=== PATIENT | male | born 1935 | race Hispanic/Latino ===

== ENCOUNTER 2020-09-30 11:13 | Outpatient (CLI) | payer MEDICARE ==
[~2020-09-30 11:13] MED LIST: Iopamidol 370 76% 100 ML VIAL ONE
--- NOTE | 2020-09-30 14:16 | CT ---
CTA ABDOMEN AND PELVIS AND LOWER EXTREMITIES WITH CTA RUNOFF: 09/30/20 TECHNIQUE: Axial tomograms obtained through with multiplanar reconstructions and 3D postprocessing following ang io protocol. INDICATIONS: Peripheral vascular disease. Outside ultrasound revealed blockage in right lower extremity. FINDINGS: Abdominal aorta shows atherosclerotic calcification. No aneurysm. No dissection. No significant stenosis at the origin of the celiac artery or superior mesenteric artery. Calcified p laque at the origin of both of these vessels. There is calcified plaque at the origin of both renal arteries. There is evidence of probable hemodyn amically significant stenosis at the origin of the left renal artery of greater than 50% diameter. The aortic bifurcation is patent. Atherosclerotic calcification in both common iliacs. RIGHT LOWER EXTREMITY: The right internal and external iliacs are patent. Right common femoral shows atherosclerotic calcifi cation but is patent without stenosis. Profunda is patent. The right superficial femoral artery shows moderate atherosclerotic changes in the mid and distal thi gh without evidence of significant stenosis. The popliteal artery shows atherosclerotic calcification without evidence of significant stenosis. The popliteal trifurcates below the joint space. Atherosclerotic changes are seen from the vessels be low the knee most pronounced in the posterior tibial artery with evidence of occlusion in the mid kristina f of the posterior tibial artery. The anterior tibial artery and peroneal artery are patent to the an kle. LEFT LOWER EXTREMITY: Left internal and external iliacs are patent. Left common femoral shows atherosclerotic calcification without significant stenosis. Profunda is patent. The left superficial femoral artery shows moderate disease at Cristi's canal with evidence of moderat e stenosis at Cristi's canal approaching 50% diameter. Atherosclerotic calcification in the popliteal with moderate stenosis at the joint space. Popliteal trifurcates below the knee. Diffuse disease seen throughout the anterior tibial artery and posterior tibial artery although both of these arteries do appear to be patent through the ankle. Per handy artery is also patent with diffuse disease. SOFT TISSUES: Lung bases show chronic parenchymal change with interstitial and fibrotic changes. The liver, spleen, and pancreas are unremarkable. There is pneumobilia seen in the proximal intrahepa tic biliary ducts. Post cholecystectomy change. Adrenal glands and kidneys unremarkable. There are bilateral renal cystic lesions. Bowel loops unremarkable. Images through the pelvis show prostatic hypertrophy which impinges on the floor of the bladder. Mild urinary bladder wall thickening. Osseous structures show prominent degenerative changes in the spine with multilevel degenerative disc changes. Anterolisthesis and posterior spondylolysis at L5-S1. Bilateral foraminal stenosis at L4-5 and L5-S1. IMPRESSION: 1. Peripheral vascular disease as detailed above. Probable hemodynamically significant stenosis at the origin of the left renal artery. 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 Probable significant stenosis in the distal left superficial femoral artery and moderate stenosi s in the left popliteal. See description above. 2. Prostatic hypertrophy impinging on the floor of the bladder. Other soft tissue findings as no thelma above. POS: DONALDW
== END 2020-09-30 11:14 | disposition home or self-care (01) ==
LOC: CT 11:13
PROVIDERS: ATTEND Family Medicine
DX: I73.9 Peripheral vascular disease, unspecified (principal); N40.0 Benign prostatic hyperplasia without lower urinary tract symptoms; I77.1 Stricture of artery
CPT/HCPCS: 75635; Q9967

== ENCOUNTER 2021-07-06 14:44 | Emergency (ER) | payer MEDICARE ==
[2021-07-06 17:00] LABS: #Eosinphils 0.1 thou/uL (0.0-0.7); #Lymphocytes 1.7 thou/uL (1.20-3.40); #Monocytes 0.6 thou/uL (0.11-0.59); #Neutrophils 3.8 thou/uL (1.40-6.50); %Basophils 0.6 % (0.0-1.0); %Eosinophils 2.3 % (0.0-10.0); %Lymphocytes 27.9 % (21.0-51.0); %Monocytes 9.2 % (0.0-10.0); Mean Corpuscular Hemoglobin 30.4 pg (27.0-31.0); Mean Platelet Volume 7.3 fL (7.4-10.4); Platelet Count 266 thou/uL (130-400); RBC Distribution Width 12.8 % (11.5-14.5); Red Blood Cell (RBC) Count 4.27 mill/uL (4.70-6.10); White Blood Cell (WBC) Count 6.2 thou/uL (4.8-10.8)
[2021-07-06 17:17] LABS: Prothrombin Time 13.3 sec (12.0-14.7)
[2021-07-06 17:18] LABS: PTT 30.7 sec (22.9-36.1)
[2021-07-06 17:33] LABS: ALT (SGPT) 18 U/L (8-55); AST (SGOT) 19 U/L (5-34); Alkaline Phosphatase 95 U/L (40-110); Anion Gap 11 mmol/L (10-20); BUN (Urea Nitrogen) 14 mg/dL (8.4-25.7); Bilirubin, Total 0.7 mg/dL (0.2-1.2); Calc. Creatinine Clearance 0 mL/min (70-130); Calcium 9.5 mg/dL (7.8-10.44); Carbon Dioxide 26 mmol/L (23-31); Chloride 103 mmol/L (98-107); Globulin 3.5 g/dL (2.4-3.5); Glucose 140 mg/dL (83-110); Potassium 4.3 mmol/L (3.5-5.1); Protein, Total 7.5 g/dL (5.8-8.1); Sodium 136 mmol/L (136-145)
== END 2021-07-06 19:16 | disposition home or self-care (01) ==
LOC: ERS 14:44
DX: I10 Essential (primary) hypertension (principal); E11.9 Type 2 diabetes mellitus without complications; E78.5 Hyperlipidemia, unspecified; E78.00 Pure hypercholesterolemia, unspecified
CPT/HCPCS: 36415; 70450; 71045; 80053; 84484; 85025; 85610; 85730; 93005

== ENCOUNTER 2021-10-14 15:38 | Outpatient (CLI) | payer MEDICARE ==
[2021-10-15 11:59] LABS: SARS-CoV-2 PCR by NAA Not Detected (NotDetected)
== END 2021-10-14 15:39 | disposition home or self-care (01) ==
LOC: LABBT 15:38
PROVIDERS: ATTEND Orthopaedic Surgery
DX: Z01.812 Encounter for preprocedural laboratory examination (principal); S42.492A Other displaced fracture of lower end of left humerus, initial encounter for closed fracture; Z20.822 Contact with and (suspected) exposure to COVID-19; E11.65 Type 2 diabetes mellitus with hyperglycemia; N40.1 Benign prostatic hyperplasia with lower urinary tract symptoms; S42.412A Displaced simple supracondylar fracture without intercondylar fracture of left humerus, initial encounter for closed fracture
CPT/HCPCS: 80053; 83036; 85025; U0003; U0005; 36415

== ENCOUNTER 2021-10-16 11:13 | Inpatient (IN) | payer MEDICARE ==
[2021-10-14 11:14] VITALS: BMI 32.1
[2021-10-16] MEDS ORDERED: Fentanyl 250 MCG/5 ML VIAL ONE (12:21)
[2021-10-16] MEDS ORDERED: Tranexamic Acid 1,000 MG/10 ML VIAL ONE (12:28)
[2021-10-16] MEDS ORDERED: Sodium Chloride 0.9% 100 ML ONE (12:29)
[2021-10-16] MEDS ORDERED: ceFAZolin (BATCH) 2 GM/100 ML BAG ONE (12:29)
[2021-10-16] MEDS ORDERED: Bupivacaine PF 0.5% 30 ML VIAL ONE ×2 (12:41→12:54)
[2021-10-16] MEDS ORDERED: Vancomycin HCl 500 MG VIAL ONE (12:42)
[2021-10-16] MEDS ORDERED: Vancomycin 1 GM/200 ML BAG ONE (12:42)
[2021-10-16] MEDS ORDERED: Vancomycin 1.5 GRAM/300 ML BAG 1.5 GM in Premix Bag 1 BAG IVPB SCH (12:45)
[2021-10-16] MEDS ORDERED: PHENYLEPHRINE-NS 100 MCG/ML 10 ML SYRINGE ONE (12:54)
[2021-10-16] MEDS ORDERED: GLYCOPYRROLATE/PF 0.2 MG/ML VIAL ONE (12:54)
[2021-10-16] MEDS ORDERED: Lidocaine 1% PF 5 ML VIAL ONE (12:54)
[2021-10-16] MEDS ORDERED: Ondansetron PF 4 MG/2 ML Vial ONE (12:54)
[2021-10-16] MEDS ORDERED: Rocuronium Bromide 10 MG/ML (10ML VIAL) ONE (12:54)
[2021-10-16] MEDS ORDERED: PROPOFOL 200 MG/20 ML VIAL ONE (12:54)
[2021-10-16] MEDS ORDERED: Phenylephrine 10 MG/ML VIAL ONE (14:30)
[2021-10-16] MEDS ORDERED: Promethazine HCl 25 MG/ML VIAL IVPB PRN (14:57)
[2021-10-16] MEDS ORDERED: Meperidine HCl/PF 25 MG/ML VIAL SLOW IVP PRN (14:57)
[2021-10-16] MEDS ORDERED: PACU-Morphine 4MG/ML VIAL SLOW IVP PRN (14:57)
[2021-10-16] MEDS ORDERED: Calcium Carbonate 500 MG ChewTAB PO PRN (16:03)
[2021-10-16] MEDS ORDERED: Ondansetron ODT 4 MG TAB PO PRN (16:03)
[2021-10-16] MEDS ORDERED: HYDROcodone/Acetaminophen 7.5/325 mg Tablet PO PRN (16:03)
[2021-10-16] MEDS ORDERED: CEFAZOLIN 2 GM, Admixture Fee 1 EACH in Sodium Chloride 0.9% 100 ML IVPB SCH (16:45)
[2021-10-16] MEDS ORDERED: Pioglitazone HCl 15 MG TAB PO SCH ×2 (17:00)
[2021-10-16] MEDS ORDERED: metFORMIN 850 MG TAB PO SCH ×3 (17:00→20:45)
[2021-10-16] MEDS: Sodium Chloride 0.9% 1,000 ML IV SCH (17:55)
[2021-10-16] MEDS: Morphine 4 MG/ML VIAL SLOW IVP PRN (19:24)
[2021-10-16] MEDS: HYDROcodone/Acetaminophen 7.5/325 mg Tablet PO PRN (19:27)
[2021-10-16] MEDS: Lisinopril 20 MG TAB PO SCH (19:45)
[2021-10-16] MEDS: Simvastatin 10 MG TAB PO SCH (19:45)
[2021-10-16] MEDS ORDERED: Dextrose 5% in Water 1,000 ML IV PRN (20:30)
[2021-10-16] MEDS ORDERED: Tamsulosin HCl 0.4 MG CAP PO SCH (20:30)
[2021-10-16] MEDS ORDERED: Dextrose 50% Abboject 50 ML SYRINGE SLOW IVP PRN (20:30)
[2021-10-16] MEDS: CEFAZOLIN 2 GM, Admixture Fee 1 EACH in Sodium Chloride 0.9% 100 ML IVPB SCH (20:52)
[2021-10-16] MEDS: Lantus 1000 UNITS/10 ML VIAL SC SCH (20:52)
[2021-10-16] MEDS ORDERED: Vancomycin 1 GM in Premix Bag 1 BAG IVPB SCH (23:59)
[2021-10-17] MEDS: Morphine 4 MG/ML VIAL SLOW IVP PRN ×2 (00:01→05:01)
[2021-10-17] MEDS: HYDROcodone/Acetaminophen 7.5/325 mg Tablet PO PRN ×2 (00:02→04:53)
[2021-10-17] MEDS: CEFAZOLIN 2 GM, Admixture Fee 1 EACH in Sodium Chloride 0.9% 100 ML IVPB SCH (04:51)
[2021-10-17] MEDS: Sodium Chloride 0.9% 1,000 ML IV SCH ×2 (05:29→20:30)
[2021-10-17 05:55] LABS: #Lymphocytes 1.2 thou/uL (1.20-3.40); #Neutrophils 11.7 thou/uL (1.40-6.50); %Lymphocytes 8.8 % (21.0-51.0); %Monocytes 7.3 % (0.0-10.0); %Neutrophils 83.9 % (42.0-75.0); Hemoglobin 11.9 g/dL (14.0-18.0); Mean Corpuscular HGB CONC 33.5 g/dL (32.0-36.0); Mean Corpuscular Hemoglobin 30.7 pg (27.0-31.0); Mean Corpuscular Volume 91.5 fL (78.0-98.0); Mean Platelet Volume 7.3 fL (7.4-10.4); Platelet Count 282 thou/uL (130-400); RBC Distribution Width 12.9 % (11.5-14.5); Red Blood Cell (RBC) Count 3.86 mill/uL (4.70-6.10)
[2021-10-17] MEDS ORDERED: traMADol HCl 50 MG TAB PO PRN (06:10)
[2021-10-17] MEDS ORDERED: Ketorolac Tromethamine 30 MG/ML VIAL IVP SCH (06:15)
[2021-10-17] MEDS ORDERED: Cyclobenzaprine 10 MG TAB PO PRN (07:44)
[2021-10-17] MEDS ORDERED: metFORMIN 500 MG TAB PO SCH (08:00)
[2021-10-17 08:01] LABS: #Lymphocytes 0.9 thou/uL (1.20-3.40); #Monocytes 1.1 thou/uL (0.11-0.59); #Neutrophils 11.6 thou/uL (1.40-6.50); %Basophils 0.1 % (0.0-1.0); %Eosinophils 0.1 % (0.0-10.0); %Lymphocytes 6.5 % (21.0-51.0); %Monocytes 8.2 % (0.0-10.0); Hemoglobin 11.2 g/dL (14.0-18.0); Mean Corpuscular HGB CONC 32.9 g/dL (32.0-36.0); Mean Corpuscular Hemoglobin 30.7 pg (27.0-31.0); Mean Corpuscular Volume 93.3 fL (78.0-98.0); Platelet Count 260 thou/uL (130-400); Red Blood Cell (RBC) Count 3.65 mill/uL (4.70-6.10); White Blood Cell (WBC) Count 13.6 thou/uL (4.8-10.8)
[2021-10-17 08:17] LABS: Anion Gap 11 mmol/L (10-20); BUN (Urea Nitrogen) 16 mg/dL (8.4-25.7); Calc. Creatinine Clearance 65 mL/min (70-130); Calcium 7.9 mg/dL (7.8-10.44); Carbon Dioxide 19 mmol/L (23-31); Chloride 107 mmol/L (98-107); Glucose 133 mg/dL (83-110); Potassium 4.3 mmol/L (3.5-5.1); Sodium 133 mmol/L (136-145)
[2021-10-17] MEDS: Pioglitazone HCl 15 MG TAB PO SCH (09:04)
[2021-10-17] MEDS: Gabapentin 300 MG CAP PO SCH ×2 (09:05→20:18)
[2021-10-17] MEDS: Aspirin 325 MG TAB PO SCH (09:10)
[2021-10-17] MEDS ORDERED: Morphine 4 MG/ML VIAL SLOW IVP PRN (10:24)
[2021-10-17] MEDS: Ondansetron PF 4 MG/2 ML Vial IVP PRN ×2 (11:33→16:50)
[2021-10-17] MEDS: Morphine 4 MG/ML VIAL SLOW IVP SCH ×6 (12:18→23:01)
[2021-10-17] MEDS ORDERED: metFORMIN XR 500 MG TAB PO SCH (17:00)
[2021-10-17] MEDS: Lisinopril 20 MG TAB PO SCH (20:18)
[2021-10-17] MEDS: Simvastatin 10 MG TAB PO SCH (20:18)
[2021-10-17] MEDS: Lantus 1000 UNITS/10 ML VIAL SC SCH (20:18)
[2021-10-18] MEDS: Morphine 4 MG/ML VIAL SLOW IVP SCH ×8 (00:47→15:19)
[2021-10-18] MEDS: Acetaminophen 325 MG TAB PO PRN ×3 (05:39→14:19)
[2021-10-18] MEDS: Sodium Chloride 0.9% 1,000 ML IV SCH (08:40)
[2021-10-18] MEDS: Pioglitazone HCl 15 MG TAB PO SCH (08:48)
[2021-10-18] MEDS: Aspirin 325 MG TAB PO SCH (08:48)
[2021-10-18] MEDS: Gabapentin 300 MG CAP PO SCH (08:48)
[2021-10-18 11:22] VITALS: BP 111/62; TEMP 98.5
[2021-10-19] MEDS ORDERED: FLU VACC QS2021-22(65YR UP)/PF 240 MCG/0.7 ML SYRINGE IM ONE (09:00)
== END 2021-10-18 15:00 | disposition home or self-care (01) | DRG 483 ==
LOC: SDC 11:13 → SURG A 17:04 → OBSVTOIN 10-18 12:42
PROVIDERS: ADMIT Orthopaedic Surgery; ATTEND Orthopaedic Surgery
PROC: 0RRM0JZ Replacement of Left Elbow Joint with Synthetic Substitute, Open Approach (ICD-10-PCS; principal; 2021-10-16)
PROC: 01Q40ZZ Repair Ulnar Nerve, Open Approach (ICD-10-PCS; 2021-10-16)
DX: S42.472A Displaced transcondylar fracture of left humerus, initial encounter for closed fracture (principal); N13.8 Other obstructive and reflux uropathy; Z20.822 Contact with and (suspected) exposure to COVID-19; E11.9 Type 2 diabetes mellitus without complications; E78.5 Hyperlipidemia, unspecified; I10 Essential (primary) hypertension; N40.1 Benign prostatic hyperplasia with lower urinary tract symptoms; R33.8 Other retention of urine; E78.00 Pure hypercholesterolemia, unspecified; W17.89XA Other fall from one level to another, initial encounter; R29.6 Repeated falls; Z91.81 History of falling; Z90.49 Acquired absence of other specified parts of digestive tract; Z79.899 Other long term (current) drug therapy; Z79.84 Long term (current) use of oral hypoglycemic drugs; Z79.4 Long term (current) use of insulin; Z79.82 Long term (current) use of aspirin; Z83.3 Family history of diabetes mellitus; Z87.891 Personal history of nicotine dependence
CPT/HCPCS: 36415; 36416; 51700; 51701; 51702; 51798; 76000; 80048; 85025; 96374; 96375; 96376; C1713; C1776; C1889; G0378; J0690; J1815; J1885; J1956; J2270; J2370; J2405; J2704; J3010; J3370; J3490; J7050; S0020

== ENCOUNTER 2021-10-25 12:49 | Emergency (ER) | payer MEDICARE ==
[2021-10-25 16:34] LABS: #Eosinphils 0.3 thou/uL (0.0-0.7); #Lymphocytes 1.6 thou/uL (1.20-3.40); #Monocytes 0.7 thou/uL (0.11-0.59); #Neutrophils 5.5 thou/uL (1.40-6.50); %Basophils 0.3 % (0.0-1.0); %Eosinophils 4.1 % (0.0-10.0); %Lymphocytes 19.3 % (21.0-51.0); %Monocytes 8.1 % (0.0-10.0); %Neutrophils 68.2 % (42.0-75.0); Mean Corpuscular HGB CONC 32.5 g/dL (32.0-36.0); Mean Corpuscular Hemoglobin 30.1 pg (27.0-31.0); Mean Corpuscular Volume 92.6 fL (78.0-98.0); Mean Platelet Volume 6.5 fL (7.4-10.4); Platelet Count 455 thou/uL (130-400); RBC Distribution Width 13.1 % (11.5-14.5); Red Blood Cell (RBC) Count 3.65 mill/uL (4.70-6.10)
[2021-10-25 16:54] LABS: Bacteria/HPF None Seen HPF (None Seen); Bilirubin Negative (Negative); Blood, Urine 3+ (Negative); Clarity Clear (Clear); Glucose, Urine (Dipstick) Normal (Negative); Ketone, Urine Negative (Negative); Leukocyte 75 Leu/uL (Negative); Nitrite Negative (Negative); Protein, Urine (Dipstick) Negative (Neg-Trace); Specific Gravity, Urine 1.002 (1.002-1.036); Squamous Epithelial None Seen HPF (0-3); Urobilinogen Normal mg/dL (Less than 2); WBC/HPF 0-3 HPF (0-3); pH, Urine 7.5 (5.0-9.0)
[2021-10-25 16:58] LABS: ALT (SGPT) 42 U/L (8-55); AST (SGOT) 27 U/L (5-34); Albumin 3.3 g/dL (3.4-4.8); Alkaline Phosphatase 129 U/L (40-110); Anion Gap 14 mmol/L (10-20); BUN (Urea Nitrogen) 15 mg/dL (8.4-25.7); Bilirubin, Total 0.5 mg/dL (0.2-1.2); Calc. Creatinine Clearance 0 mL/min (70-130); Calcium 8.9 mg/dL (7.8-10.44); Carbon Dioxide 23 mmol/L (23-31); Chloride 102 mmol/L (98-107); Globulin 3.2 g/dL (2.4-3.5); Glucose 169 mg/dL (83-110); Potassium 4.6 mmol/L (3.5-5.1); Protein, Total 6.5 g/dL (5.8-8.1); Sodium 134 mmol/L (136-145)
== END 2021-10-25 17:35 | disposition home or self-care (01) ==
LOC: ERS 12:49
DX: T83.091A Other mechanical complication of indwelling urethral catheter, initial encounter (principal); R31.9 Hematuria, unspecified; R33.9 Retention of urine, unspecified; E11.9 Type 2 diabetes mellitus without complications; E78.5 Hyperlipidemia, unspecified; E78.00 Pure hypercholesterolemia, unspecified; I10 Essential (primary) hypertension
CPT/HCPCS: 36415; 80053; 81003; 81015; 85025; 87086; 99283

== ENCOUNTER 2022-01-11 14:39 | Outpatient (CLI) | payer MEDICARE | END 2022-01-11 14:40 | disposition home or self-care (01) | LOC: BICRAD 14:39 | PROVIDERS: ATTEND Internal Medicine | DX: R05.9 Cough, unspecified (principal) | CPT/HCPCS: 71046 ==

== ENCOUNTER 2023-09-26 14:06 | Outpatient (CLI) | payer MEDICARE | END 2023-09-26 14:07 | disposition home or self-care (01) | LOC: BICRAD 14:06 | PROVIDERS: ATTEND Family Medicine | DX: R05.3 Chronic cough (principal) | CPT/HCPCS: 71046 ==